=== PATIENT | male | born 1985 | race Caucasian/White ===

== ENCOUNTER 2017-09-17 10:29 | Emergency (ER) | payer BC, OTHER ==
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
== END 2017-09-17 11:38 | disposition home or self-care (01) ==
LOC: JD.ED 10:29
DX: M54.9 Dorsalgia, unspecified (principal); I10 Essential (primary) hypertension
CPT/HCPCS: 99283